=== PATIENT | male | born 1950 | race Caucasian/White ===

== ENCOUNTER 2017-02-14 08:17 | Day surgery (SDC) | payer MEDICARE ==
[2017-02-14 09:04] VITALS: BMI 28.7
[2017-02-14 09:34] VITALS: TEMP 98.4; O2SAT 100
--- NOTE | 2017-02-14 11:05 | CP.SDSHP ---
Same Day Surgery H & P - History Proposed Procedure: colonoscopy Pre-Op Diagnosis: screening - Previous Medical/Surgical History Cardiac: Hypertension, ASHD/CAD Endocrine/Metabolic: Diabetes - Allergies Allergies: Allergies No Known Allergies Allergy (Verified 10/14/13 08:15) - Physical Exam General Appearance: NAD Vital Signs: Vital Signs 02/14/17 09:00 Temperature 98.4 F Pulse Rate 65 Respiratory 19 Rate Blood Pressure 125/81 O2 Sat by Pulse 100 Oximetry Mental Status: Alert & Oriented x3 Neuro: WNL Heart: WNL Lungs: WNL GI: WNL - {Optional Preform as Required} Abdomen: WNL - Impression Pt. Evaluated Today:Candidate for Anesthesia & Procedure: Yes - Date & Time Date: 02/14/17 Time: 11:05 Short Stay Discharge - Short Stay Discharge Admitting Diagnosis/Reason for Visit: SCREENING Disposition: HOME/ ROUTINE
[2017-02-14] MEDS ORDERED: Propofol 10 mg/ml Inj (20 ML) ONE ×2 (11:10)
[2017-02-14 11:18] VITALS: RESP 20
[2017-02-14] MEDS ORDERED: Lactated Ringer's 500 ML IV SCH (11:45)
[2017-02-14 12:28] VITALS: BP 125/73; PULSE 73
== END 2017-02-14 12:25 | disposition home or self-care (01) ==
LOC: C.ENDO 08:17
PROVIDERS: ATTEND Internal Medicine Gastroenterology
DX: Z12.11 Encounter for screening for malignant neoplasm of colon (principal); D12.5 Benign neoplasm of sigmoid colon; K57.30 Diverticulosis of large intestine without perforation or abscess without bleeding; K64.8 Other hemorrhoids; I25.119 Atherosclerotic heart disease of native coronary artery with unspecified angina pectoris; Z95.5 Presence of coronary angioplasty implant and graft; I10 Essential (primary) hypertension; E11.9 Type 2 diabetes mellitus without complications; Z79.84 Long term (current) use of oral hypoglycemic drugs; Z98.890 Other specified postprocedural states; Z79.82 Long term (current) use of aspirin; Z79.899 Other long term (current) drug therapy; E78.5 Hyperlipidemia, unspecified

== ENCOUNTER 2017-08-15 08:52 | Day surgery (SDC) | payer MEDICARE ==
[2017-08-15 09:29] VITALS: TEMP 97.2
--- NOTE | 2017-08-15 10:41 | CP.SDSHP ---
Same Day Surgery H & P - History Proposed Procedure: EGD Pre-Op Diagnosis: bloating - Previous Medical/Surgical History Cardiac: Hypertension, ASHD/CAD Endocrine/Metabolic: Diabetes - Allergies Allergies: Allergies No Known Allergies Allergy (Verified 10/14/13 08:15) - Physical Exam General Appearance: NAD Vital Signs: Vital Signs 08/15/17 09:21 Temperature 97.2 F L Pulse Rate 61 Respiratory 19 Rate Blood Pressure 167/86 H O2 Sat by Pulse 100 Oximetry Mental Status: Alert & Oriented x3 Neuro: WNL Heart: WNL Lungs: WNL GI: WNL - {Optional Preform as Required} Abdomen: WNL - Impression Pt. Evaluated Today:Candidate for Anesthesia & Procedure: Yes - Date & Time Date: 08/15/17 Time: 10:41 Short Stay Discharge - Short Stay Discharge Admitting Diagnosis/Reason for Visit: ABDOMINAL DISTENSION (GASEOUS) Disposition: HOME/ ROUTINE
[2017-08-15] MEDS ORDERED: Propofol 10 mg/ml Inj (20 ML) ONE ×2 (11:30→11:38)
[2017-08-15] MEDS ORDERED: Lidocaine Hydrochloride 10 ML INJ ONE (11:38)
[2017-08-15 13:42] VITALS: O2SAT 99
[2017-08-15 13:49] VITALS: BP 145/84; PULSE 65; RESP 12
== END 2017-08-15 12:48 | disposition home or self-care (01) ==
LOC: C.ENDO 08:52
PROVIDERS: ATTEND Internal Medicine Gastroenterology
DX: K20.9 Esophagitis, unspecified (principal); K31.7 Polyp of stomach and duodenum; B96.81 Helicobacter pylori [H. pylori] as the cause of diseases classified elsewhere; K29.80 Duodenitis without bleeding
CPT/HCPCS: 43239; 82948; 88305; 88312; 88313; 88342; J2704; J3010